=== PATIENT | male | born 1925 | race Caucasian/White ===

== ENCOUNTER 2017-04-25 10:15 | Emergency (ER) | payer OTHER ==
--- NOTE | 2017-04-25 10:16 | ED Physician Documentation ---
General Adult - HISTORIAN Historian: patient - HPI Stated Complaint: slurred speech and fatigue at home after breakfast Chief Complaint: General Adult Onset: hours (1) Timing: better Severity: moderate Further Comments: yes (Daughter states after breakfast he was slummped over at the table and his speech eas slurred. She states he then did "snap out of it" but states he was confused "for a min" she states here at the hospital on admission to ER his speech is normal and his actions are normal. She states he has been coughing for a long time. Neither she nor pt are aware if he has had a fever. He has Afib chronically. No chest pain. He has no fall to report) - ROS CONST: recent illness (Cough ) EYES/ENT: denies: nasal drainage CVS/RESP: shortness of breath, cough. denies: chest pain GI/: denies: problems urinating, vomiting, nausea MS/SKIN/LYMPH: none NEURO/PSYCH: difficulty with speech (this am with episode ). denies: headache, fainting, dizziness - PAST HX Past History: A-Fib, hypertension Surgeries/Procedures: other Immunizations: referred to PCP Allergies/Adverse Reactions: Allergies Allergy/AdvReac Type Severity Reaction Status Date / Time No Known Allergies Allergy Unverified 04/25/17 10:38 Home Medications: Ambulatory Orders Medication Instructions Recorded Colchicine [Mitigare] 0.6 mg PO BID PRN 04/25/17 Docusate Sodium [Colace] 100 mg PO DAILY PRN 04/25/17 Furosemide [Lasix] 40 mg PO DAILY 04/25/17 Losartan Potassium [Cozaar] 50 mg PO DAILY 04/25/17 Metoprolol Tartrate [Lopressor] 50 mg PO DAILY 04/25/17 Simvastatin [Zocor] 20 mg PO HS 04/25/17 Warfarin Sodium [Coumadin] 3 mg PO 1800 04/25/17 - SOCIAL HX Smoking History: quit greater than 1 year Alcohol Use: none Drug Use: none - FAMILY HX Family History: No - REVIEWED ASSESSMENTS Nursing Assessment Reviewed: Yes Vitals Reviewed: Yes Progress - Progress Progress: 1108: Discussed findings with pt and family. Will increase lasix for 5 days. Will start on Antibiotic and he needs to see his PCP for work up soon. They are asking questions about a possible "temp" PCP while here in [place]. Discussion on how to obtain a PCP and voice understanding. DG ED Results Lab/Radiology - Radiology Radiology Impressions: Examination: CT head without contrast History: Slurred speech Comparison exam: None available Technique: Noncontrast head CT protocol. Findings: Ventricles and sulci are prominent, though consistent for patient age. Cerebrocerebellar parenchyma demonstrates periventricular low attenuation consistent with small vessel disease. No evidence for parenchymal hemorrhage. Basal ganglia calcifications. No evidence for mass or mass effect. No midline shift. No extra axial fluid collections. Partial visualization of the paranasal sinuses scattered mucous thickening. Mastoid air cells, orbits, skull and scalp without gross irregularity. Vascular calcifications. Impression: Age related changes. No acute parenchymal process. No hemorrhage. Electronically signed on Apr 25, 2017 10:56:30 AM PRINTING MANAGER by: Toy Garcia Examination: PA and lateral chest. History: Evaluate lung echevarria. Comparison exam: None provided Findings: PA lateral chest demonstrates prominent cardiac silhouette. Tortuous aorta with vascular calcifications involving the aortic arch. Right greater than left, diffuse parenchymal interstitial haziness. No overt costophrenic margin blunting. Osseous structures are appropriate for age. Impression: Diffuse bilateral, right greater than left, interstitial haziness - chronicity cannot be determined without older exams. Diffuse infiltrative process versus increased volume status. Electronically signed on Apr 25, 2017 10:59:47 AM PRINTING MANAGER by: Toy Garcia General Adult Physical Exam - PHYSICAL EXAM GENERAL APPEARANCE: no distress EENT: MARIA FERNANDA NECK: normal inspection RESPIRATORY: chest non-tender, wheezes, rhonchi CVS: tachycardia ABDOMEN: soft, normal bowel sounds SKIN: warm/dry, normal color EXTREMITIES: non-tender, no evidence of injury, no edema NEURO: oriented X3, CN's nml as tested, motor nml, sensation nml, mood/affect nml, cognition normal Discharge Clincal Impression: Cough Referrals: Primary Doctor,No [Primary Care Provider] - 2 Days Comments: take meds as prescribed. Follow up with PCP [phone] for appt Return to ER for any symptoms that are concerning Increase lasix x 5 days to 60 mg daily Medrol dose pack as directed Azithromycin (Zpack as directed) Proair 2 puffs by mouth every 4-6 hours as needed for cough Condition: Stable Disposition: 01 HOME, SELF-CARE Decision to Admit: NO Date of Decison to Admit: 04/25/17 Decision Time: 11:09
[2017-04-25 10:42] LABS: BASOPHILS % 0.6 (0.0-1.5); EOSINOPHILS % 3.9 % (0.0-6.8); MEAN CORPUSCULAR HEMOGLOBIN 31.6 pg (28.0-34.0); MEAN CORPUSCULAR VOLUME 98.4 fl (80.0-100.0); MONOCYTES % 7.1 % (0.0-11.0); NEUTROPHILS # 4.6 # k/uL (1.4-7.7)
[2017-04-25 10:50] LABS: eGFR (African) > 60; eGFR (Non-African) 51
--- NOTE | 2017-04-25 11:00 | Diagnostic Imaging Report ---
LAURENT CROOK [facility] [address] [facility] [address] [place], [place]. [address] Report Submission Date: Apr 25, 2017 10:59:47 AM WASHCLOTH FOLDER Patient Study Name: ROB DON Date: Apr 25, 2017 10:47:38 AM WASHCLOTH FOLDER Modality Type: CR Gender: M Description: CHEST : [birth year] Institution: [facility] Physician: LAURENT CROOK Examination: PA and lateral chest. History: Evaluate lung echevarria. Comparison exam: None provided Findings: PA lateral chest demonstrates prominent cardiac silhouette. Tortuous aorta with vascular calcifications involving the aortic arch. Right greater than left, diffuse parenchymal interstitial haziness. No overt costophrenic margin blunting. Osseous structures are appropriate for age. Impression: Diffuse bilateral, right greater than left, interstitial haziness - chronicity cannot be determined without older exams. Diffuse infiltrative process versus increased volume status. Electronically signed on Apr 25, 2017 10:59:47 AM WASHCLOTH FOLDER by: Toy NORTON
--- NOTE | 2017-04-25 11:00 | Diagnostic Imaging Report ---
LAURENT CROOK [facility] [address] [facility], [facility] [place], [place]. [address] Report Submission Date: Apr 25, 2017 10:56:30 AM SCREW MACHINE TENDER Patient Study Name: ROB DON Date: Apr 25, 2017 10:36:48 AM SCREW MACHINE TENDER Modality Type: CT\SR Gender: M Description: CT BRAIN W/O CONTRAST : [birth year] Institution: [facility] Physician: LAURENT CROOK Examination: CT head without contrast History: Slurred speech Comparison exam: None available Technique: Noncontrast head CT protocol. Findings: Ventricles and sulci are prominent, though consistent for patient age. Cerebrocerebellar parenchyma demonstrates periventricular low attenuation consistent with small vessel disease. No evidence for parenchymal hemorrhage. Basal ganglia calcifications. No evidence for mass or mass effect. No midline shift. No extra axial fluid collections. Partial visualization of the paranasal sinuses scattered mucous thickening. Mastoid air cells, orbits, skull and scalp without gross irregularity. Vascular calcifications. Impression: Age related changes. No acute parenchymal process. No hemorrhage. Electronically signed on Apr 25, 2017 10:56:30 AM SCREW MACHINE TENDER by: Toy NORTON
[2017-04-25 11:40] VITALS: BP 139/74
== END 2017-04-25 11:30 | disposition home or self-care (01) ==
LOC: ED 10:15
DX: R05 Cough (principal); I48.91 Unspecified atrial fibrillation; I10 Essential (primary) hypertension
CPT/HCPCS: 70450; 71020; 80053; 82550; 83880; 85025; 85610; 85730; 87040; 99283; S1016